=== PATIENT | female | born 1980 ===

== ENCOUNTER 2020-07-27 04:47 | Observation (INO) | payer OTHER, SELFPAY ==
[2020-07-27] VITALS (21 sets, daily range): BP systolic 129–192; BP diastolic 76–124; PULSE 78–120; RESP 11–36; TEMP 36.4–37.1; O2SAT 95–100; BMI 24.3
--- NOTE | 2020-07-27 04:56 | ED_ITS ---
HPI - General Adult General Chief complaint: Hypertension Stated complaint: Uncontrolled Shaking Time Seen by Provider: 07/27/20 04:48 Source: patient and EMS Mode of arrival: EMS Limitations: no limitations History of Present Illness HPI narrative: Patient is a 31-year-old female who reports no prior medical history here for evaluation of uncontrolled shaking and also tingling in both of her hands. She states that she woke up at approximately midnight with the symptoms in the continued until this morning when she contacted EMS to bring her into the emergency department. She states she has never had anything like this in the past. She has not had any new exposures. She takes no medications. Denies any drug use. States she did drink some alcohol yesterday but not more than what she normally does. Has not tried anything for the symptoms prior to arrival. Related Data Home Medications Medication Instructions Recorded Confirmed No Known Home Medications 01/18/19 01/18/19 Allergies Allergy/AdvReac Type Severity Reaction Status Date / Time Sulfa (Sulfonamide Allergy Hives Verified 01/18/19 14:19 Antibiotics) Review of Systems Constitutional Constitutional: Reports fatigue and Denies fever(s) Cardiovascular Cardiovascular: Denies chest pain and Denies dyspnea Respiratory Respiratory: Denies dyspnea Gastrointestinal Gastrointestinal: Denies abdominal pain, Denies nausea and Denies vomiting Musculoskeletal Musculoskeletal: Reports muscle cramps Comments: Tingling in both of her hands Integumentary/Breasts Skin/Breast: Denies rash Neurologic Comments: Uncontrolled shaking Psychiatric Psychiatric: Denies anxiety Endocrine Endocrine: Reports fatigue Hematologic/Lymphatic On Anticoagulants: No Allergic/Immunologic Allergic/Immunologic: Reports system reviewed and no additional complaints, except as documented Patient History Medical History IUD contraception Social History Smoking Status: Never smoker Smoking Status: Never smoker Exam Initial Vital Signs Initial Vital Signs: Vital Signs Temperature 97.6 F 07/27/20 04:54 Pulse Rate 119 H 07/27/20 04:54 Respiratory Rate 26 H 07/27/20 04:54 Blood Pressure 173/100 H 07/27/20 04:54 Pulse Oximetry 100 07/27/20 04:54 Const General: No comfortable Limitations: mental status not altered HENMT Head: normal to inspection and normocephalic Resp Effort & Inspection: normal respiratory effort Auscultation: clear to auscultation bilaterally Cardio Rate: tachycardic Rhythm: regular rhythm Skin Lesions: no lesions Rashes: no rashes Neuro General: patient alert, patient awake and patient oriented x3 Cognition: normal cognition Speech: speech normal Motor: No fasciculations Other: Patient with carpal spasms in bilateral hands with left being greater than right. Extrem General: capillary refill normal Psych Speech and Movement: restless Mood: anxious mood Course Orders Ordered: ED Orders 07/27/20 04:50 COVID19 -Nasal swab/Pre-Proc Stat 07/27/20 04:55 Urine Drug Screen, Rapid Stat 07/27/20 05:07 Complete Blood Count AUTO DIFF Stat Comprehensive Metabolic Panel Stat Ethanol (ETOH) Stat Lactate (Lactic Acid) Stat Lipase Stat Magnesium Stat Phosphorous Stat Test Serum,Qual Stat Thyroid Stimulating Hormone Stat 07/27/20 05:47 Creatine Kinase Stat 07/27/20 06:02 Venous Blood Gas Stat 07/27/20 06:03 Creatinine Urine Random Stat Phosphorous Urine Random Stat Sodium Urine Random Stat 07/27/20 06:14 Vitamin D 25 Hydroxy (D3) Stat Potassium Phosphate 10 mmol/ (Sodium Chloride) 1,003.3333 mls @ 100 mls/hr IV CONT NAIN Discontinued Medications Sodium Chloride (Normal Saline 0.9%) 1,000 mls @ 1,000 mls/hr IV BOLUS ONE Stop: 07/27/20 05:53 Last Admin: 07/27/20 05:08 Dose: 1,000 mls/hr Documented by: Lorazepam (Lorazepam 2 Mg/Ml Inj) 1 mg IV NOW ONE Stop: 07/27/20 04:55 Last Admin: 07/27/20 05:08 Dose: 1 mg Documented by: Potassium Chloride (Potassium Chloride 20 Meq/15 Ml Udc) 40 meq PO NOW ONE Stop: 07/27/20 05:46 Last Admin: 07/27/20 05:50 Dose: 40 meq Documented by: Vital Signs Vital signs: Vital Signs - 8 hr 07/27/20 04:54 07/27/20 05:15 07/27/20 05:16 Temperature 97.6 F Pulse Rate 119 H 82 80 Respiratory Rate 26 H 11 L Blood Pressure 173/100 H Pulse Oximetry 100 07/27/20 05:30 07/27/20 05:45 Temperature Pulse Rate 79 101 H Respiratory Rate 21 Blood Pressure 152/93 H Pulse Oximetry 95 97 Medical Decision Making Lab Data Lab results reviewed: Yes I reviewed the patient's lab results. Result diagrams: 07/27/20 05:07 07/27/20 05:07 Labs: Lab Results 07/27/20 07/27/20 07/27/20 Range/Units 04:50 05:07 05:07 WBC 7.9 (4.5-11.0) X10^3/uL RBC 4.28 (4.0-5.2) X10^6/uL Hgb 13.9 (12.0-16.0) g/dL Hct 40.9 (36-46) % MCV 95.7 (80-100) fL MCH 32.5 (26-34) PG MCHC 34.0 (30-36) % RDW 13.4 (11.6-14.8) % Plt Count 299 (150-400) X10^3/uL Neut % (Auto) 77.0 H (50-75) % Lymph % (Auto) 12.6 L (25-40) % Falls % (Auto) 9.0 (3-14) % Eos % (Auto) 0.4 L (2-4) % Baso % (Auto) 1.0 (0-2) % Neut # (Auto) 6100 (0956-6043) /uL Lymph # (Auto) 1000 L (8942-7279) /uL Falls # (Auto) 700 (0-900) /uL Eos # (Auto) 0 (0-450) /uL Baso # (Auto) 100 (0-100) /uL VBG pH (7.33-7.43) VBG pCO2 (45-50) mmHg VBG pO2 (35-45) mmHg VBG HCO3 (23-28) mmol/L VBG Total CO2 (24-29) mmol/L VBG O2 Saturation (70-75) % VBG Base Excess (0-4) mmol/L Sodium 136 L (137-145) mmol/L Potassium 2.8 L (3.4-5.1) mmol/L Chloride 100 (98-107) mmol/L Carbon Dioxide 17 L (22-32) mmol/L BUN 7 (7-17) mg/dL Creatinine 0.59 (0.52-1.04) mg/dL Estimated GFR > 60.0 (>60) mL/min BUN/Creatinine Ratio 11.9 (6-22) Glucose 158 H (70-100) mg/dL Lactate (0.7-2.1) mmol/L Calcium 9.4 (8.4-10.2) mg/dL Phosphorus 1.0 L* (2.5-4.5) mg/dL Magnesium 1.4 L (1.6-2.3) mg/dL Total Bilirubin 0.4 (0.2-1.3) mg/dL AST 88 H (14-36) IU/L ALT 56 H (<35) IU/L Alkaline Phosphatase 80 (38-126) U/L Total Creatine Kinase (30-135) U/L Total Protein 8.3 H (6.3-8.2) g/dL Albumin 5.0 (3.5-5.0) g/dL Globulin 3.3 (1.7-4.1) g/dL Albumin/Globulin Ratio 1.5 (1.0-2.8) Lipase 129 (23-300) U/L 25-OH Vitamin D Total (30.0-100.0) ng/mL TSH (0.47-4.68) uIU/mL Serum , Qual (Negative) Ur Random Sodium (30-90) mmol/L Urine Creatinine mg/dL Ethyl Alcohol < 10 ( - 10) mg/dL SARS-CoV-2 (PCR) Negative (Negative) 07/27/20 07/27/20 07/27/20 Range/Units 05:07 05:07 05:07 WBC (4.5-11.0) X10^3/uL RBC (4.0-5.2) X10^6/uL Hgb (12.0-16.0) g/dL Hct (36-46) % MCV (80-100) fL MCH (26-34) PG MCHC (30-36) % RDW (11.6-14.8) % Plt Count (150-400) X10^3/uL Neut % (Auto) (50-75) % Lymph % (Auto) (25-40) % Falls % (Auto) (3-14) % Eos % (Auto) (2-4) % Baso % (Auto) (0-2) % Neut # (Auto) (0624-6898) /uL Lymph # (Auto) (8315-4091) /uL Falls # (Auto) (0-900) /uL Eos # (Auto) (0-450) /uL Baso # (Auto) (0-100) /uL VBG pH (7.33-7.43) VBG pCO2 (45-50) mmHg VBG pO2 (35-45) mmHg VBG HCO3 (23-28) mmol/L VBG Total CO2 (24-29) mmol/L VBG O2 Saturation (70-75) % VBG Base Excess (0-4) mmol/L Sodium (137-145) mmol/L Potassium (3.4-5.1) mmol/L Chloride (98-107) mmol/L Carbon Dioxide (22-32) mmol/L BUN (7-17) mg/dL Creatinine (0.52-1.04) mg/dL Estimated GFR (>60) mL/min BUN/Creatinine Ratio (6-22) Glucose (70-100) mg/dL Lactate 5.3 H* (0.7-2.1) mmol/L Calcium (8.4-10.2) mg/dL Phosphorus (2.5-4.5) mg/dL Magnesium (1.6-2.3) mg/dL Total Bilirubin (0.2-1.3) mg/dL AST (14-36) IU/L ALT (<35) IU/L Alkaline Phosphatase (38-126) U/L Total Creatine Kinase (30-135) U/L Total Protein (6.3-8.2) g/dL Albumin (3.5-5.0) g/dL Globulin (1.7-4.1) g/dL Albumin/Globulin Ratio (1.0-2.8) Lipase (23-300) U/L 25-OH Vitamin D Total (30.0-100.0) ng/mL TSH 2.98 (0.47-4.68) uIU/mL Serum , Qual Negative (Negative) Ur Random Sodium (30-90) mmol/L Urine Creatinine mg/dL Ethyl Alcohol ( - 10) mg/dL SARS-CoV-2 (PCR) (Negative) 07/27/20 07/27/20 07/27/20 Range/Units 05:07 05:07 06:15 WBC (4.5-11.0) X10^3/uL RBC (4.0-5.2) X10^6/uL Hgb (12.0-16.0) g/dL Hct (36-46) % MCV (80-100) fL MCH (26-34) PG MCHC (30-36) % RDW (11.6-14.8) % Plt Count (150-400) X10^3/uL Neut % (Auto) (50-75) % Lymph % (Auto) (25-40) % [place] % (Auto) (3-14) % Eos % (Auto) (2-4) % Baso % (Auto) (0-2) % Neut # (Auto) (5641-1351) /uL Lymph # (Auto) (0310-8259) /uL [place] # (Auto) (0-900) /uL Eos # (Auto) (0-450) /uL Baso # (Auto) (0-100) /uL VBG pH (7.33-7.43) VBG pCO2 (45-50) mmHg VBG pO2 (35-45) mmHg VBG HCO3 (23-28) mmol/L VBG Total CO2 (24-29) mmol/L VBG O2 Saturation (70-75) % VBG Base Excess (0-4) mmol/L Sodium (137-145) mmol/L Potassium (3.4-5.1) mmol/L Chloride (98-107) mmol/L Carbon Dioxide (22-32) mmol/L BUN (7-17) mg/dL Creatinine (0.52-1.04) mg/dL Estimated GFR (>60) mL/min BUN/Creatinine Ratio (6-22) Glucose (70-100) mg/dL Lactate (0.7-2.1) mmol/L Calcium (8.4-10.2) mg/dL Phosphorus (2.5-4.5) mg/dL Magnesium (1.6-2.3) mg/dL Total Bilirubin (0.2-1.3) mg/dL AST (14-36) IU/L ALT (<35) IU/L Alkaline Phosphatase (38-126) U/L Total Creatine Kinase 125 (30-135) U/L Total Protein (6.3-8.2) g/dL Albumin (3.5-5.0) g/dL Globulin (1.7-4.1) g/dL Albumin/Globulin Ratio (1.0-2.8) Lipase (23-300) U/L 25-OH Vitamin D Total 29.4 L (30.0-100.0) ng/mL TSH (0.47-4.68) uIU/mL Serum , Qual (Negative) Ur Random Sodium 235 H (30-90) mmol/L Urine Creatinine 67.2 mg/dL Ethyl Alcohol ( - 10) mg/dL SARS-CoV-2 (PCR) (Negative) 07/27/20 Range/Units 06:21 WBC (4.5-11.0) X10^3/uL RBC (4.0-5.2) X10^6/uL Hgb (12.0-16.0) g/dL Hct (36-46) % MCV (80-100) fL MCH (26-34) PG MCHC (30-36) % RDW (11.6-14.8) % Plt Count (150-400) X10^3/uL Neut % (Auto) (50-75) % Lymph % (Auto) (25-40) % Falls % (Auto) (3-14) % Eos % (Auto) (2-4) % Baso % (Auto) (0-2) % Neut # (Auto) (7104-4132) /uL Lymph # (Auto) (9082-7241) /uL Falls # (Auto) (0-900) /uL Eos # (Auto) (0-450) /uL Baso # (Auto) (0-100) /uL VBG pH 7.41 (7.33-7.43) VBG pCO2 40.5 L (45-50) mmHg VBG pO2 32 L (35-45) mmHg VBG HCO3 25 (23-28) mmol/L VBG Total CO2 27 (24-29) mmol/L VBG O2 Saturation 62 L (70-75) % VBG Base Excess 1.0 (0-4) mmol/L Sodium (137-145) mmol/L Potassium (3.4-5.1) mmol/L Chloride (98-107) mmol/L Carbon Dioxide (22-32) mmol/L BUN (7-17) mg/dL Creatinine (0.52-1.04) mg/dL Estimated GFR (>60) mL/min BUN/Creatinine Ratio (6-22) Glucose (70-100) mg/dL Lactate (0.7-2.1) mmol/L Calcium (8.4-10.2) mg/dL Phosphorus (2.5-4.5) mg/dL Magnesium (1.6-2.3) mg/dL Total Bilirubin (0.2-1.3) mg/dL AST (14-36) IU/L ALT (<35) IU/L Alkaline Phosphatase (38-126) U/L Total Creatine Kinase (30-135) U/L Total Protein (6.3-8.2) g/dL Albumin (3.5-5.0) g/dL Globulin (1.7-4.1) g/dL Albumin/Globulin Ratio (1.0-2.8) Lipase (23-300) U/L 25-OH Vitamin D Total (30.0-100.0) ng/mL TSH (0.47-4.68) uIU/mL Serum , Qual (Negative) Ur Random Sodium (30-90) mmol/L Urine Creatinine mg/dL Ethyl Alcohol ( - 10) mg/dL SARS-CoV-2 (PCR) (Negative) Point of Care Testing Glucose POC 150 Point of care testing: Point of Care Testing Glucose POC 150 MDM Narrative Medical decision making narrative: Patient did seem very anxious upon arrival in this did improve with Ativan. The muscle tingling/cramps that she was having for in her bilateral hands with left being greater than right. All of her symptoms seem to started within the past 8 hours. She states she does drink alcohol on a daily basis but she did not drink any more alcohol yesterday the which she normally does. She denied any other drugs or alcohol. Labs resulted in a significant hypophosphatemia and also a hypokalemia. Her kidney function is unremarkable. Alcohol level was negative. Discussed the case with NPO on the night Hospital provider. I do feel given her clinical presentation in the level of her hypophosphatemia and her other lab abnormalities and admission the hospital for further evaluation treatment is needed. I did discuss this with the patient who expressed understanding agreement. Discharge Plan Departure Patient Disposition: Admitted as Observation Clinical Impression: Hypophosphatemia, Hypokalemia, Paresthesias
[2020-07-27] MEDS: LORazepam 2 MG/ML INJ 1 MG IV (05:08)
[2020-07-27] MEDS: SODIUM CHLORIDE 0.9% 1,000 ML 1000 ML IV (05:08)
[2020-07-27 05:15] LABS: COVID19 -Nasal RAPID Negative (Negative)
[2020-07-27 05:15] LABS: Add Manual Diff / Slide Review NO; Basophils Absolute Auto 100 /uL (0-100); Eosinophils Absolute Auto 0 /uL (0-450); Eosinophils Percent Auto 0.4 % (2-4); Hematocrit 40.9 % (36-46); Hemoglobin 13.9 g/dL (12.0-16.0); Lymphocytes Absolute Auto 1000 /uL (1100-4500); Lymphocytes Percent Auto 12.6 % (25-40); Mean Corpuscular Hemoglobin 32.5 PG (26-34); Mean Corpuscular Volume 95.7 fL (80-100); Monocytes Absolute Auto 700 /uL (0-900); Neutrophils Absolute Auto 6100 /uL (1500-7000); Platelet Count 299 X10^3/uL (150-400); Red Blood Cell Count 4.28 X10^6/uL (4.0-5.2); Red Cell Distribution Width 13.4 % (11.6-14.8); White Blood Cell Count 7.9 X10^3/uL (4.5-11.0)
[2020-07-27 05:29] LABS: Alanine Aminotransferase 56 IU/L (<35); Albumin Globulin Ratio 1.5 (1.0-2.8); Alkaline Phosphatase 80 U/L (38-126); Aspartate Aminotransferase 88 IU/L (14-36); BUN Creatinine Ratio 11.9 (6-22); Bilirubin Total 0.4 mg/dL (0.2-1.3); Blood Urea Nitrogen 7 mg/dL (7-17); Calcium 9.4 mg/dL (8.4-10.2); Carbon Dioxide 17 mmol/L (22-32); Chloride 100 mmol/L (98-107); Estimated Glomerular Filt Rate > 60.0 mL/min (>60); Ethanol (ETOH) < 10 mg/dL; Globulin 3.3 g/dL (1.7-4.1); Glucose 158 mg/dL (70-100); HEMOLYSIS < 15 (0-50); Lipase 129 U/L (23-300); Magnesium 1.4 mg/dL (1.6-2.3); Sodium 136 mmol/L (137-145); Total Protein 8.3 g/dL (6.3-8.2)
[2020-07-27 05:34] LABS: Pregnancy Test Serum,Qual Negative (Negative)
[2020-07-27 05:37] LABS: Potassium 2.8 mmol/L (3.4-5.1)
[2020-07-27 05:43] LABS: Lactate (Lactic Acid) 5.3 mmol/L (0.7-2.1)
[2020-07-27] MEDS: POTASSIUM CHLORIDE 20 MEQ/15 ML UDC 40 MEQ PO (05:50)
[2020-07-27 06:01] LABS: Creatine Kinase 125 U/L (30-135)
[2020-07-27 06:05] LABS: Thyroid Stimulating Hormone 2.98 uIU/mL (0.47-4.68)
[2020-07-27 06:44] LABS: Vitamin D 25 Hydroxy (D3) 29.4 ng/mL (30.0-100.0)
[2020-07-27 06:47] LABS: HCO3 VBG 25 mmol/L (23-28); Oxygen Saturation VBG 62 % (70-75); PCO2 VBG 40.5 mmHg (45-50); PO2 VBG 32 mmHg (35-45); Total CO2 VBG 27 mmol/L (24-29); pH VBG 7.41 (7.33-7.43)
[2020-07-27 06:47] LABS: Creatinine Urine Random 67.2 mg/dL; Sodium Urine Random 235 mmol/L (30-90)
[2020-07-27 07:10] LABS: Reflexed Lactate in 2 Hours Y
--- NOTE | 2020-07-27 07:18 | DI.US.S_ITS ---
PROCEDURE: US ABDOMEN LIMITED INDICATIONS: ELEVATE TRANSAMINASE TECHNIQUE: Real-time focused scanning was performed of the abdomen, with image documentation. COMPARISON: None. FINDINGS: Normal sonographic appearance of the liver, spleen, gallbladder, and pancreas. IMPRESSION: Normal study. Dictated by: Rajat Adkins M.D. on 07/27/2020 at 8:12 Approved by: Rajat Adkins M.D. on 07/27/2020 at 8:13
--- NOTE | 2020-07-27 07:21 | PM.HP.1 ---
History of Present Illness History of Present Illness Date Patient Seen: 07/27/20 Time Patient Seen: 07:22 Chief complaint: Uncontrolled Shaking Narrative: Norma Cuenca is a 39 y.o. female with a limited medical history woke up in the middle of the night with bilateral hand cramping that progressed to hand tingling then shaking. She came in because she was concerned of having COVID-19. Denies fever, sweats or chills, shortness of breath, nausea or vomiting, dysurea, diarrhea or constipation. She does take supplements including Vitamin D. 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 Last drink was the night before admission. Denies she stopped her normal drinking within the past 72 hours. She is afebrile blood pressure 152/93 heart rate 101, respiratory rate 7, oxygen saturation 97% on room air, she weighs 70.3 kg with a BMI of 24.3, CBC is unremarkable, sodium 136, potassium 2.8, chloride 100, bicarb 17, BUN 7, creatinine 0.59, with GFR greater than 60, glucose 158, lactate 5.3, calcium 9.4, phosphorus 1.0, magnesium 1.4, AST 88, ALT 56, total bilirubin 0.4, alk-phos 80, vitamin-D 29.4 slightly low, urine random sodium is 235, urine random phosphorus is pending, urine creatinine is 67.2, alcohol level was less than 10 normal, and COVID 19 PCR was negative. Patient History Surgical History IUD contraception Family & Social History Family History Father Heart valve replaced Mother Alive and well Grandmother Alive and well Other Diabetes mellitus Safety & Behavioral: Feels Safe in Current Yes Environment Tobacco & Substance use: Smoking Status Never smoker alcohol intake frequency 3 or more drinks per day Substance Use Type does not use Meds Home Medications and Allergies Home Medications Medication Instructions Recorded Confirmed Type No Known Home Medications 01/18/19 01/18/19 History Allergies Allergy/AdvReac Type Severity Reaction Status Date / Time Sulfa (Sulfonamide Allergy Hives Verified 01/18/19 14:19 Antibiotics) Review of Systems Review of Systems ROS: Yes All systems reviewed with the patient and are negative except as otherwise documented Exam Vital Signs (past 8 hours): - 07/27/20 04:54 07/27/20 05:15 07/27/20 05:16 Temperature 97.6 F Pulse Rate 119 H 82 80 Respiratory Rate 26 H 11 L Blood Pressure 173/100 H Pulse Oximetry 100 07/27/20 05:30 07/27/20 05:45 Temperature Pulse Rate 79 101 H Respiratory Rate 21 Blood Pressure 152/93 H Pulse Oximetry 95 97 Oxygen Delivery Method Room Air Narrative Exam Narrative: Gen: Alert, oriented, well-developed 39 y.o. female, NAD HEENT: normocephalic, atraumatic, conjunctiva clear, sclera non-icteric, oral mucosa pink and moist Neck: supple, full ROM, no JVD, trachea is midline Resp: Lungs CTA, non-labored breathing CV: RRR, no murmur or rubs Abd: soft, non-tender, normoactive BTs Skin: no lesions or rashes, dry and intact Neuro: Alert and oriented X 4 w/no focal deficits. Speech clear and coherent. Extremities: resting tremor both hands, is ambulatory, negative Elly?s sign Psyche: normal mood and affect Objective Labs Result Diagrams: 07/27/20 05:07 07/27/20 05:07 Labs: Laboratory Results - last 24 hr 07/27/20 07/27/20 07/27/20 04:50 05:07 05:07 WBC 7.9 RBC 4.28 Hgb 13.9 Hct 40.9 MCV 95.7 MCH 32.5 MCHC 34.0 RDW 13.4 Plt Count 299 Neut % (Auto) 77.0 H Lymph % (Auto) 12.6 L [place] % (Auto) 9.0 Eos % (Auto) 0.4 L Baso % (Auto) 1.0 Neut # (Auto) 6100 Lymph # (Auto) 1000 L [place] # (Auto) 700 Eos # (Auto) 0 Baso # (Auto) 100 VBG pH VBG pCO2 VBG pO2 VBG HCO3 VBG Total CO2 VBG O2 Saturation VBG Base Excess Sodium 136 L Potassium 2.8 L Chloride 100 Carbon Dioxide 17 L BUN 7 Creatinine 0.59 Estimated GFR > 60.0 BUN/Creatinine Ratio 11.9 Glucose 158 H Lactate Calcium 9.4 Phosphorus 1.0 L* Magnesium 1.4 L Total Bilirubin 0.4 AST 88 H ALT 56 H Alkaline Phosphatase 80 Total Creatine Kinase Total Protein 8.3 H Albumin 5.0 Globulin 3.3 Albumin/Globulin Ratio 1.5 Lipase 129 25-OH Vitamin D Total TSH Serum , Qual Ur Random Sodium Urine Creatinine Ethyl Alcohol < 10 SARS-CoV-2 (PCR) Negative 07/27/20 07/27/20 07/27/20 05:07 05:07 05:07 WBC RBC Hgb Hct MCV MCH MCHC RDW Plt Count Neut % (Auto) Lymph % (Auto) [place] % (Auto) Eos % (Auto) Baso % (Auto) Neut # (Auto) Lymph # (Auto) [place] # (Auto) Eos # (Auto) Baso # (Auto) VBG pH VBG pCO2 VBG pO2 VBG HCO3 VBG Total CO2 VBG O2 Saturation VBG Base Excess Sodium Potassium Chloride Carbon Dioxide BUN Creatinine Estimated GFR BUN/Creatinine Ratio Glucose Lactate 5.3 H* Calcium Phosphorus Magnesium Total Bilirubin AST ALT Alkaline Phosphatase Total Creatine Kinase Total Protein Albumin Globulin Albumin/Globulin Ratio Lipase 25-OH Vitamin D Total TSH 2.98 Serum , Qual Negative Ur Random Sodium Urine Creatinine Ethyl Alcohol SARS-CoV-2 (PCR) 07/27/20 07/27/20 07/27/20 05:07 05:07 06:15 WBC RBC Hgb Hct MCV MCH MCHC RDW Plt Count Neut % (Auto) Lymph % (Auto) [place] % (Auto) Eos % (Auto) Baso % (Auto) Neut # (Auto) Lymph # (Auto) [place] # (Auto) Eos # (Auto) Baso # (Auto) VBG pH VBG pCO2 VBG pO2 VBG HCO3 VBG Total CO2 VBG O2 Saturation VBG Base Excess Sodium Potassium Chloride Carbon Dioxide BUN Creatinine Estimated GFR BUN/Creatinine Ratio Glucose Lactate Calcium Phosphorus Magnesium Total Bilirubin AST ALT Alkaline Phosphatase Total Creatine Kinase 125 Total Protein Albumin Globulin Albumin/Globulin Ratio Lipase 25-OH Vitamin D Total 29.4 L TSH Serum , Qual Ur Random Sodium 235 H Urine Creatinine 67.2 Ethyl Alcohol SARS-CoV-2 (PCR) 07/27/20 06:21 WBC RBC Hgb Hct MCV MCH MCHC RDW Plt Count Neut % (Auto) Lymph % (Auto) [place] % (Auto) Eos % (Auto) Baso % (Auto) Neut # (Auto) Lymph # (Auto) [place] # (Auto) Eos # (Auto) Baso # (Auto) VBG pH 7.41 VBG pCO2 40.5 L VBG pO2 32 L VBG HCO3 25 VBG Total CO2 27 VBG O2 Saturation 62 L VBG Base Excess 1.0 Sodium Potassium Chloride Carbon Dioxide BUN Creatinine Estimated GFR BUN/Creatinine Ratio Glucose Lactate Calcium Phosphorus Magnesium Total Bilirubin AST ALT Alkaline Phosphatase Total Creatine Kinase Total Protein Albumin Globulin Albumin/Globulin Ratio Lipase 25-OH Vitamin D Total TSH Serum , Qual Ur Random Sodium Urine Creatinine Ethyl Alcohol SARS-CoV-2 (PCR) Assessment & Plan Assessment & Plan narrative: Norma Cuenca will be observed for several hours, repleted with potassium, magnesium and phosphorus, levels repeated and likely discharged with outpatient followup. Acute hypokalemia, hypophophetemia, and mild hyponatremia present on admission - Patient has received oral supplementation this morning - BMP, phos and mag levels at noon - Urine random phosphorus is pending Alcohol dependence, likely chronic - CIWA protocol - PO ativan 2 mg q 4 hours as needed for withdrawal VTE prophylaxis: Wells risk score: 0 Bilateral SCDs Consults: none Patient is observation status as her stay is not likely to exceed 2 midnights. FEN: IV saline lock , heart healty diet, BMP, phosphorus and magnesium at noon Dispo: probable discharge to home Code Status: Full code as discussed with patient COVID-19 COVID-19 status: Negative Result date/Date tested (Pos, Neg/Pending): 07/27/20
[2020-07-27] MEDS: SODIUM,POTASSIUM PHOSPHATES PACKET 1 EACH PO (07:31)
[2020-07-27 07:54] LABS: Phosphorous Urine Random 20.2 mg/dL
[2020-07-27] MEDS: POTASSIUM PHOSPHATE 10 MMOL in SODIUM CHLORIDE 0.9% 1,000 ML 100 MMOL IV ×2 (08:30→22:08)
[2020-07-27] MEDS: MULTIVITAMIN 1 TABLET 1 TAB PO (09:07)
[2020-07-27] MEDS: FOLIC ACID 1 MG TABLET PO (09:08)
[2020-07-27] MEDS: LORazepam 1 MG TABLET PO (09:08)
[2020-07-27] MEDS: THIAMINE 100 MG TABLET PO (09:08)
[2020-07-27] MEDS: SODIUM CHLORIDE 0.9% 1,000 ML 100 ML IV ×2 (09:51→22:00)
[2020-07-27] MEDS: MAGNESIUM SULFATE 2 GM/50 ML PIGGYBACK IV (09:52)
--- NOTE | 2020-07-27 12:08 | PC.NURSE ---
Assumed care of patient at 0803, patient reports pins and needle sensation bilateral hands and across bridge of nose. Dr. Mc aware, instructed to hang Potassium Phosphate that was brought up from ED. Patient A/O x 4, denies pain, dizziness or chest pain. Patient ambulating independently to restroom, denies N/V. Patient tolerating diet. Given Ativan d/t feelings of anxiety and restlessness. Patient rested most of the morning. Given permission by patient to speak to , Mateo, regarding care. This RN spoke to patient's over the phone, he fears this is related to her drinking. He is reachable via phone [phone] and is currently deployed on a ship. Patient reported sensation in bilateral hands resolving around noon. Mg+ finished, NS infusing at 100cc/hr. Patient denies further needs at this time. Call light in reach.
[2020-07-27 13:16] LABS: Magnesium 2.9 mg/dL (1.6-2.3)
[2020-07-27 14:03] LABS: BUN Creatinine Ratio 8.5 (6-22); Blood Urea Nitrogen 5 mg/dL (7-17); Calcium 9.2 mg/dL (8.4-10.2); Carbon Dioxide 23 mmol/L (22-32); Chloride 102 mmol/L (98-107); Estimated Glomerular Filt Rate > 60.0 mL/min (>60); Glucose 92 mg/dL (70-100); HEMOLYSIS < 15 (0-50); Phosphorous 3.4 mg/dL (2.5-4.5); Potassium 3.5 mmol/L (3.4-5.1); Sodium 135 mmol/L (137-145)
[2020-07-27] MEDS: LORazepam 2 MG/ML INJ IV (20:17)
[2020-07-27] MEDS: METOPROLOL IR 25 MG TABLET PO (21:38)
--- NOTE | 2020-07-27 22:36 | PC.NURSE ---
This Rn has reviewed documentation by student development specialist and agrees with assessments and documentation.
[2020-07-28 01:49] VITALS: BP 143/109; PULSE 62; RESP 18; TEMP 36.5; O2SAT 100
[2020-07-28 01:57] VITALS: O2SAT 100
--- NOTE | 2020-07-28 02:09 | PC.NURSE ---
pt's bp was 143/109 when vitals taken about 0200, pt denied any other symptoms, all other vitals stable, provider notified of increased bp, provider said she is happy with that and no new orders were given.
[2020-07-28 05:26] VITALS: BP 151/108; PULSE 92; RESP 18; TEMP 36.2; O2SAT 100
[2020-07-28 06:02] LABS: BUN Creatinine Ratio 7.1 (6-22); Blood Urea Nitrogen 4 mg/dL (7-17); Calcium 8.4 mg/dL (8.4-10.2); Carbon Dioxide 23 mmol/L (22-32); Chloride 107 mmol/L (98-107); Estimated Glomerular Filt Rate > 60.0 mL/min (>60); Glucose 92 mg/dL (70-100); HEMOLYSIS < 15 (0-50); Magnesium 2.4 mg/dL (1.6-2.3); Phosphorous 2.8 mg/dL (2.5-4.5); Potassium 4.1 mmol/L (3.4-5.1); Sodium 134 mmol/L (137-145)
[2020-07-28 07:40] VITALS: O2SAT 95
[2020-07-28] MEDS: SODIUM CHLORIDE 0.9% 1,000 ML 100 ML IV (07:58)
[2020-07-28 08:00] VITALS: BP 150/114; PULSE 89; RESP 19; TEMP 36.5; O2SAT 98
--- NOTE | 2020-07-28 08:36 | P.DS_ITS ---
History of Present Illness History of Present Illness Date Patient Seen: 07/28/20 Time Patient Seen: 08:37 Chief complaint: Uncontrolled Shaking Narrative: Per REGGIE Ricks: Norma Cuenca is a 39 y.o. female with a limited medical history woke up in the middle of the night with bilateral hand cramping that progressed to hand tingli ng then shaking. She came in because she was concerned of having COVID-19. Denies fever, sweats or chills, shortness of breath, nausea or vomiting, dysurea, diarrhea or constipation. She does take supplements including Vitamin D. She works in the liquor industry as a distributor and closes out her day with a beer, a glass of wine and a shot of heard liquor she states she chases with a 32 oz bottle of water. Last drink was the night before admission. Denies she stopped her normal drinking within the past 72 hours. She is afebrile blood pressure 152/93 heart rate 101, respiratory rate 7, oxygen saturation 97% on room air, she weighs 70.3 kg with a BMI of 24.3, CBC is unremarkable, sodium 136, potassium 2.8, chloride 100, bicarb 17, BUN 7, creatinine 0.59, with GFR greater than 60, glucose 158, lactate 5.3, calcium 9.4, phosphorus 1.0, magnesium 1.4, AST 88, ALT 56, total bilirubin 0.4, alk- phos 80, vitamin-D 29.4 slightly low, urine random sodium is 235, urine random phosphorus is pending, urine creatinine is 67.2, alcohol level was less than 10 normal, and COVID 19 PCR was negative. Discharge Providers Provider Date of admission: 07/27/20 07:07 Discharge Date: 07/28/20 Discharge provider: Fawad Mc DO Summary Hospital Course Discharge Diagnosis: 1. Acute hypokalemia, present on admission, resolved 2. Acute hypophophetemia, present on admission, resolved 3. Acute mild hyponatremia present on admission 4. Acute hypomagnesemia, present on admission, resolved. 5. Mild alcohol withdrawal, resolved Hospital Course: This is a 39-year-old female admitted with bilateral hand cramping and tingling followed by shaking. On admission her phosphorus level was noted to be 1.0 and she also other more mild electrolyte abnormalities including hypomagnesemia, hypokalemia. All of her electrolyte abnormalities improved with repletion, and were stable the following morning. Patient also had likely mild alcohol withdrawal symptoms with tachycardia and some tremulousness. This improved with a few doses of Ativan and resolved by the following morning as well. 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 This relative malnutrition likely led to her electrolyte abnormalities as noted above. She was encouraged to start a multivitamin and cut down on her alcohol intake, she did not want any resources for outpatient alcohol cessation. She was also recommended to try to make some behavioral modifications to allow her to eat during work. Do recommend that she follow-up with her primary care provider in the next 1-2 weeks to recheck her electrolytes as an outpatient. Exam Vital Signs (past 8 hours): - 07/28/20 01:49 07/28/20 01:57 07/28/20 05:26 Temperature 97.7 F 97.1 F L Pulse Rate 62 92 H Respiratory Rate 18 18 Blood Pressure 143/109 H 151/108 H Pulse Oximetry 100 100 100 07/28/20 07:40 Temperature Pulse Rate Respiratory Rate Blood Pressure Pulse Oximetry 95 Oxygen Delivery Method Room Air Oxygen Flow Rate 0 Narrative Exam Narrative: Gen: Alert, oriented, well-developed 39 y.o. female, NAD HEENT: normocephalic, atraumatic, conjunctiva clear, sclera non-icteric, oral mucosa pink and moist Neck: supple, full ROM, no JVD, trachea is midline Resp: Lungs CTA, non-labored breathing CV: RRR, no murmur or rubs Abd: soft, non-tender, normoactive BTs Skin: no lesions or rashes, dry and intact Neuro: Alert and oriented X 4 w/no focal deficits. Speech clear and coherent. Extremities: no tremulousness, no edema or tenderness. Psyche: normal mood and affect Objective Labs Result Diagrams: 07/27/20 05:07 07/28/20 05:06 Labs: Laboratory Results - last 24 hr 07/27/20 07/27/20 07/28/20 12:54 12:54 05:06 Sodium 135 L 134 L Potassium 3.5 4.1 Chloride 102 107 Carbon Dioxide 23 23 BUN 5 L 4 L Creatinine 0.59 0.56 Estimated GFR > 60.0 > 60.0 BUN/Creatinine Ratio 8.5 7.1 Glucose 92 92 Calcium 9.2 8.4 Phosphorus 3.4 D 2.8 Magnesium 2.9 H 2.4 H PFSH Surgical History IUD contraception Family History Father Heart valve replaced Mother Alive and well Grandmother Alive and well Other Diabetes mellitus Social History household members: spouse Smoking Status: Never smoker alcohol intake: current Discharge Plan Discharge Plan Patient Disposition: Home Provider Discharge Comment: You were admitted to the hospital with a low potassium and very low phosphorous level which caused some minor neurological symptoms. This improved with replacement. Try to cut down on your alcohol consumption and try to get some food in during the day. Also recommend a multivitamin at home. Discharge orders & Medications Prescriptions: No Action No Known Home Medications RF: 0 Medication counseling provided by Pharmacist: Yes Diet/Activity/Treatments Diet: Diet as Tolerated Activity: As tolerated Visit Report/Discharge Packet Instructions: Alcohol Use Disorder, DI for Prescription Opioid Use, Multivitamins Discharge Data Attending Provider: Karina Rivera
[2020-07-28] MEDS: FOLIC ACID 1 MG TABLET PO (08:40)
[2020-07-28] MEDS: THIAMINE 100 MG TABLET PO (08:40)
[2020-07-28] MEDS: MULTIVITAMIN 1 TABLET 1 TAB PO (08:40)
--- NOTE | 2020-07-28 09:27 | PC.NURSE ---
Patient left facility with all belongings. Patient verbalized discharge teaching regarding alcohol use, diet, electrolytes and multivitamin replacement. Patient left facility w/ no medication orders and with all belongings via [employer].
--- NOTE | 2020-07-28 10:53 | CM.DANOTE ---
Addendum entered by Mallorie Rodriguez R.N. 07/28/20 11:01: Mallorie Rodriguez RN/[employer]/Fireman Original Note: DCP: Case received, EMR reviewed and met with patient. Introduced self and role. Was able to obtain information regarding patient's baseline activity status, and some alternate history. DCP assessment completed with information currently available. Patient is a 39 year old female who admitted yesterday morning to the care of the hospitalist team. PCP: Dr. Mcdaniel. Payer: confirmed: Daniel Sutton. Patient came to the hospital via ambulance secondary to having uncontrollable shaking. Patient was noted to have a decrease in her Magnesium level. Patient was also tachy, and possible alcohol withdrawal. 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 Met with patient this morning. She is alert and oriented, pleasant, ready to go home. Confirmed that she resides here in [place] with her spouse, Mateo. Asked her if she is an active drinker, stated, no, I work in a Liquor store, but do drink occasionally at night. Asked her if she was interested in any resources concerning alcohol. Stated, she did not feel that she needs any resources at this time. She was anxiously wanting to go home. She did ask for a note from the hospitalist if she can be off work for a couple of days. Asked Dr. Mc, he is aware and working on note. P: Patient is discharging home today. She declined any resources for alcohol use.
== END 2020-07-28 09:28 | disposition home or self-care (01) ==
LOC: ED 06:30 → AC 07:08
PROVIDERS: Internal Medicine; Admitting Provider Nurse Practitioner Family; Emergency Provider Emergency Medicine; Referring Provider Emergency Medicine; Visit Provider Nurse Practitioner Family
DX: R20.2 Paresthesia of skin (principal); R00.0 Tachycardia, unspecified; E83.39 Other disorders of phosphorus metabolism; E87.6 Hypokalemia; E87.1 Hypo-osmolality and hyponatremia; E83.42 Hypomagnesemia; F10.20 Alcohol dependence, uncomplicated; Z20.822 Contact with and (suspected) exposure to COVID-19
CPT/HCPCS: 36415; 36592; 76705; 80048; 80053; 80320; 82306; 82550; 82570; 82805; 82962; 83605; 83690; 83735; 84100; 84105; 84300; 84443; 84703; 85025; 87635; 96365; 96366; 96367; 96375; 96376; 99284; C9803; G0378; J2060; J3475

== ENCOUNTER 2023-08-06 21:06 | Emergency (ER) | payer OTHER, SELFPAY ==
[2020-07-27 08:37] VITALS: BMI 24.3
[2023-08-06 21:19] VITALS: BP 205/150; PULSE 120; RESP 20; TEMP 36.3; O2SAT 98; BMI 25.0
[2023-08-06 22:49] LABS: Pregnancy Test Urine Negative (Negative)
[2023-08-06 22:56] LABS: Urine Volume Low Vol <1mL unspun
[2023-08-06 22:57] LABS: Bacteria Urine Many (>30); RBC Urine 0-1/HPF (0-5/HPF); Squamous Epithelial Cell Urine 10-30 /HPF (0-5/HPF); WBC Urine 1-5/HPF (0-5/HPF)
[2023-08-06 22:58] LABS: Culture Indicated Urine Specimen Cultured
== END 2023-08-06 23:14 | disposition left against medical advice (07) ==
PROVIDERS: Emergency Provider Emergency Medicine
DX: T14.8XXA Other injury of unspecified body region, initial encounter (principal); X58.XXXA Exposure to other specified factors, initial encounter; Z53.21 Procedure and treatment not carried out due to patient leaving prior to being seen by health care provider
CPT/HCPCS: 81015; 81025; 87077; 87086; 87186; 99281